=== PATIENT | male | born 1975 | race Caucasian/White ===

== ENCOUNTER 2024-12-13 20:37 | Emergency (ER) | payer MEDICAID, SELFPAY ==
--- NOTE | 2024-12-13 20:40 | ED.RECABL ---
HPI - Recheck/Abnormal Lab/Rx General Chief Complaint: Recheck/Abnormal Lab/Rx Stated Complaint: increased K level sent by Dr. Valenzuela Seen by Provider: 12/14/24 01:18 Source: patient Mode of arrival: ambulatory Limitations: no limitations History of Present Illness ED Provider: Dr. Samara Oconnor HPI narrative: Patient comes to the emergency room stating that he had a phone call from his primary care physician to let him know that his potassium is elevated at 6.1. They asked him to come to the emergency room to get evaluated. Patient is asymptomatic. Related Data Allergies Allergy/AdvReac Type Severity Reaction Status Date / Time No Known Allergies Allergy Verified 12/13/24 20:45 Review of Systems Review of Systems: Constitutional : No Weight loss, No Fever, No Chills, No Night Sweats, No Fatigue, No Malaise ENT/Mouth : No Hearing loss, No Ear Pain, No Nasal Congestion, No Sinus Pain, No Hoarseness, No sore throat, No Rhinorrhea, No Swallowing Difficulty Eyes: No Eye Pain, No Swelling, No Redness, No Foreign Body, No Discharge, No Vision Changes Cardiovascular : No Chest Pain, No SOB, No Dyspnea on Exertion, No Orthopnea, No Edema, No Palpitations Respiratory : No Cough, No Sputum, No Wheezing, No Smoke Exposure, No Dyspnea Gastrointestinal : No Nausea, No Vomiting, No Diarrhea, No Constipation, No abdominal Pain, No Hematochezia, No Melena Genitourinary : no irregular bleeding, No Dysuria, No Urinary Frequency, No Hematuria, No Urinary Incontinence, No Urgency, No Flank Pain, No Urinary Flow Changes, No Hesitancy Musculoskeletal : No joint pain, No Myalgias, No Joint Swelling Skin : No Skin Lesions, No rash Neuro : No Weakness, No Numbness, No Paresthesias, No Loss of Consciousness, No Dizziness, No Headache Psych : No Anxiety/Panic, No Depression, No SI/HI/AH/VH, No Social Issues, Heme/Lymph: No Bruising, No Bleeding,No Lymphadenopathy Endocrine : No Polyuria, No Polydipsia, No Temperature Intolerance PMFSH Social History Social History Do you have a plan to hurt others: No Plan Physical Exam Vital Signs: Vital Signs: Last Vital Signs Temp 98.2 F 12/14/24 00:42 Pulse 92 12/14/24 00:42 Resp 18 12/14/24 00:42 BP 110/69 12/14/24 00:42 Pulse Ox 97 12/14/24 00:42 O2 Del Method Room Air 12/14/24 00:42 BMI result Body Mass Index 23.8 Const: Other: Appearance: Alert. Oriented X3. No acute distress. Eyes: Pupils equal, round and reactive to light. ENT: Pharynx normal. Neck: Normal inspection. Neck supple. No lymph nodes noted. No crepitus CVS: Normal heart rate and rhythm. Pulses normal. Normal S1 and S2 Respiratory: No respiratory distress. Breath sounds normal. No Wheezing. No rales Abdomen: Soft and nontender. No rigidity. No distention. Skin: Skin warm and dry. Normal skin color. Normal skin turgor. Extremities: No lower extremity edema. No Lacerations. No Rash Neuro: Oriented X 3. No motor deficit. No sensory deficit. Moving all extremities. No slurred speech. CN 2 through 12 grossly intact Psych: calm, cooperative, normal affect Course Course Course Narrative: This is an RME performed by Haven Carnes CNP: Additional HPI, ROS, PE not included below will be deferred to primary provider. Patient is a 49-year-old male who presents emergency department for evaluation, received a call from his doctor's office that his potassium level was critical at 6.1, lab was drawn yesterday. Plan: Serum labs, ECG Medical Decision Making Medical Decision Making [facility] Narrative: My interpretation of labs: Patient's potassium is 4.5 without any intervention. My interpretation of EKG: Normal sinus rhythm, heart rate 10, occasional PVCs, no ST segment depression or elevation, no T-wave inversion, QTC 424 I discussed with the patient that sometimes with the tourniquet is too tight and blood is drawn, it can not give a falls elevated potassium. No further intervention needed. Lab Data 12/13/24 20:58 12/13/24 20:58 Labs: Lab Results 12/13/24 Range/Units 20:58 WBC 8.6 (4.8-10.8) X10*3/uL RBC 3.97 L (4.60-5.80) X10*6/uL Hgb 12.4 L (14.0-18.0) g/dl Hct 36.2 L (42.0-52.0) % MCV 91.2 (80.0-98.0) fL MCH 31.2 (27.0-33.0) pg MCHC 34.3 (31.0-36.0) g/dl RDW 11.7 (11.0-16.0) % Plt Count 258 (160-400) X10*3/uL MPV 10.1 (9.4-12.4) fL Immature Gran % (Auto) 0.2 (0.0-0.4) % Neut % (Auto) 61.2 (45-73) % Lymph % (Auto) 28.4 (20-40) % [place] % (Auto) 7.8 (2-11) % Eos % (Auto) 1.7 (0-4) % Baso % (Auto) 0.7 (0-2) % Lymph # (Auto) 2.4 (1.2-4.9) X10*3/uL [place] # (Auto) 0.7 (0.1-1.2) X10*3/uL Eos # (Auto) 0.2 (0.0-0.4) X10*3/uL Baso # (Auto) 0.1 (0.0-0.2) X10*3/uL Abs Immat Gran (auto) 0.02 (0.00-0.03) X10*3/uL Absolute Neuts (auto) 5.2 (2.0-8.3) x10*3/uL Absolute Nucleated RBC 0.000 (0.0-0.012) X10*3/uL Nucleated RBC % (auto) 0.0 (0.0-0.2) /100WBC Sodium 137 (135-145) mmol/L Potassium 4.5 (3.3-5.1) mmol/L Chloride 106 (96-108) mmol/L Carbon Dioxide 22 (22-29) mmol/L Anion Gap 14 (12-20) BUN 38 H (9-16) mg/dL Creatinine 1.05 (0.5-1.4) mg/dL Estim Creat Clear Calc 83.2 Estimated GFR > 60 Random Glucose 138 H (60-115) mg/dL Calcium 8.8 (8.4-10.2) mg/dL Magnesium 2.3 (1.6-2.6) mg/dL Total Bilirubin 0.2 (0.0-1.0) mg/dL AST 18 (5-37) U/L ALT 19 (0-40) U/L Alkaline Phosphatase 74 (39-117) U/L Total Protein 6.4 L (6.5-8.0) g/dL Albumin 4.0 (3.5-5.0) g/dL Discharge Plan Discharge Clinical Impression: Normal exam Patient Disposition: Home, Self-Care Instructions: Normal Exam (ED) Additional Instructions: Please follow-up with your primary care physician tomorrow. If you have any worsening or new symptoms, please return to the emergency room or call 911
[2024-12-13 20:42] VITALS: BP 109/78; PULSE 112; RESP 18; TEMP 36.9; O2SAT 99; BMI 23.8
--- NOTE | 2024-12-13 20:45 | ECG_ITS ---
Test Reason : HYPERKALEMIA Blood Pressure : */* mmHG Vent. Rate : 110 BPM Atrial Rate : 110 BPM P-R Int : 126 ms QRS Dur : 88 ms QT Int : 314 ms P-R-T Axes : 77 83 58 degrees QTcB Int : 424 ms Sinus tachycardia with occasional Premature ventricular complexes Otherwise normal ECG No previous ECGs available Referred By: Lorraine Carnes Electronically Signed By: Rom Catherine
[2024-12-13 21:04] LABS: MANUAL DIFF FLAG NO
[2024-12-13 21:19] LABS: Alanine Aminotransferase 19 U/L (0-40); Alkaline Phosphatase 74 U/L (39-117); Anion Gap 14 (12-20); Aspartate Amino Transferase 18 U/L (5-37); Bilirubin Total 0.2 mg/dL (0.0-1.0); Blood Urea Nitrogen 38 mg/dL (9-16); Calcium 8.8 mg/dL (8.4-10.2); Carbon Dioxide 22 mmol/L (22-29); Chloride 106 mmol/L (96-108); Creatinine Clr Calc Pharmacy 83.2; Estimated Glomerular Filt Rate > 60; Glucose Random 138 mg/dL (60-115); Magnesium 2.3 mg/dL (1.6-2.6); Potassium 4.5 mmol/L (3.3-5.1); Sodium 137 mmol/L (135-145); Total Protein 6.4 g/dL (6.5-8.0)
[2024-12-13 21:30] LABS: Basophils Absolute Auto 0.1 X10*3/uL (0.0-0.2); Basophils Percent Auto 0.7 % (0-2); Eosinophils Absolute Auto 0.2 X10*3/uL (0.0-0.4); Eosinophils Percent Auto 1.7 % (0-4); Hematocrit 36.2 % (42.0-52.0); Hemoglobin 12.4 g/dl (14.0-18.0); Imm Gran Abs Auto 0.02 X10*3/uL (0.00-0.03); Imm Gran Pct Auto 0.2 % (0.0-0.4); Lymphocytes Absolute Auto 2.4 X10*3/uL (1.2-4.9); Lymphocytes Percent Auto 28.4 % (20-40); Mean Corpuscular HGB Conc 34.3 g/dl (31.0-36.0); Mean Corpuscular Hemoglobin 31.2 pg (27.0-33.0); Mean Corpuscular Volume 91.2 fL (80.0-98.0); Mean Platelet Volume 10.1 fL (9.4-12.4); Monocytes Absolute Auto 0.7 X10*3/uL (0.1-1.2); Monocytes Percent Auto 7.8 % (2-11); Neutrophils Absolute Auto 5.2 x10*3/uL (2.0-8.3); Neutrophils Percent Auto 61.2 % (45-73); Platelet Count 258 X10*3/uL (160-400); Red Blood Count 3.97 X10*6/uL (4.60-5.80); Red Cell Distribution Width 11.7 % (11.0-16.0); White Blood Count 8.6 X10*3/uL (4.8-10.8)
[2024-12-14 00:42] VITALS: BP 110/69; PULSE 92; RESP 18; TEMP 36.8; O2SAT 97
[2024-12-14 01:38] VITALS: BP 110/69; PULSE 92; RESP 18; TEMP 36.8; O2SAT 97
== END 2024-12-14 01:38 | disposition home or self-care (01) ==
LOC: HO.ED 12-14 01:39
PROVIDERS: Nurse Practitioner Family; Emergency Provider Emergency Medicine
DX: Z03.89 Encounter for observation for other suspected diseases and conditions ruled out (principal)
CPT/HCPCS: 36415; 80053; 83735; 85025; 93005; 99283

== ENCOUNTER → 2024-12-13 20:45 | Outpatient (BNV) | payer MEDICAID, SELFPAY | PROVIDERS: Emergency Provider Emergency Medicine; Visit Provider Internal Medicine Cardiovascular Disease | DX: I49.3 Ventricular premature depolarization (principal); R00.0 Tachycardia, unspecified | CPT/HCPCS: 93010 ==

== ENCOUNTER 2025-01-10 16:56 | Emergency (ER) | payer MEDICAID, SELFPAY ==
[2025-01-10 16:58] VITALS: BP 137/92; PULSE 110; RESP 20; TEMP 37.2; O2SAT 97; BMI 27.1
--- NOTE | 2025-01-10 17:05 | ED_ITS ---
HPI - Extremity Problem General Chief complaint: Extremity Injury, Upper Stated complaint: right arm pain Time Seen by Provider: 01/10/25 18:43 Source: patient and old records reviewed Mode of arrival: ambulatory Limitations: no limitations History of Present Illness ED Provider: NAV HPI Narrative: 49 yo male with PMH of HTN, mood disorder not on blood thinners who is managed at [facility] for cervical issues and neck pain he has stenosis he states from C3- C5. He notes his R arm is very painful near the bicep. No numbness, weakness, no trauma. He takes tylenol and no relief. He notes he has to have surgery but is not scheduled yet. He notes he cannot tolerate the pain. He wants to talk to his spine provider next week about the plan moving forward. No fevers, no rash. MD Complaint: extremity pain Onset (ago): day(s) (few) Pain Consistency: intermittent Location: right Quality: aching Radiation: none Relieving factors: rest Exacerbating factors: range of motion Associated symptoms: denies other symptoms Context: other Related Data Previous Rx's ?Medication ?Instructions ?Recorded morphine 15 mg immediate release 15 mg PO Q6H PRN pain #10 tabs 01/10/25 tablet prednisone 20 mg tablet 40 mg (2 x 20 mg) PO DAILY 5 days 01/10/25 #10 tabs Allergies Allergy/AdvReac Type Severity Reaction Status Date / Time No Known Allergies Allergy Verified 01/10/25 17:02 Review of Systems Review of Systems: Constitutional : No Fever, No Chills ENT/Mouth : No Ear Pain, No Hoarseness, No sore throat Eyes: No Eye Pain, No Swelling, No Redness, No Foreign Body Cardiovascular : No Chest Pain, No SOB Respiratory : No Cough, No Dyspnea Gastrointestinal : No Nausea, No Vomiting, No Diarrhea, No abdominal Pain Genitourinary : No Dysuria, No Hematuria Musculoskeletal : positive joint pain, No Myalgias, No Joint Swelling, pos arm pain Skin : No Skin lacerations, No rash Neuro : No Weakness, No Numbness, No Loss of Consciousness, No Dizziness, No Headache All other systems reviewed and are negative [facility] Past Medical History Attestation statement: The following information was validated with the patient. Medical History HTN (hypertension) Mood disorder Social History Social History (Updated 01/10/25 @ 19:08 by Ana Maria Burgess DO) Patient Tobacco Use Status: Never used Tobacco Advance Directives: No Advance Directives Information Provided: No Do you have a plan to hurt others: No Plan Physical Exam Vital Signs: Vital Signs: Last Vital Signs Temp 98.6 F 01/10/25 19:35 Pulse 91 01/10/25 19:35 Resp 18 01/10/25 19:35 BP 131/86 01/10/25 19:35 Pulse Ox 98 01/10/25 19:35 O2 Del Method Room Air 01/10/25 19:35 BMI result Body Mass Index 27.1 Appearance: Alert. Oriented X3. No acute distress. Eyes: Pupils equal, round and reactive to light. ENT: Pharynx normal. Neck: Normal inspection. ttp CVS: Normal heart rate and rhythm. Pulses normal. Respiratory: No respiratory distress. Breath sounds normal. Abdomen: Soft and nontender. Skin: Skin warm and dry. Normal skin color. Normal skin turgor. Extremities: No lower extremity edema. No calf ttp Neuro: Oriented X 3. No motor deficit. No sensory deficit. CN2-12 intact Course Course Course Narrative: RME; 49-year-old male presents to ED for neck pain radiating down right bicep. Patient had MRI yesterday which shows cervical spinal stenosis of the cervical spine and lumbar spine. Patient denies any neuro deficits. Patient has complete range of motion of all extremities. Patient requesting pain medication. Patient to be evaluated main ED for pain med controlled. Medications Administered Discontinued Medications Generic Name Dose Route Start Last Admin Trade Name Freq PRN Reason Stop Dose Admin Morphine Sulfate 15 mg 01/10/25 18:55 01/10/25 19:09 Morphine Sulfate Immed Release 15 Mg Tablet PO 01/10/25 18:56 15 mg ONCE ONE Administration Medical Decision Making Medical Decision Making MDM Narrative: 49 yo male with PMH of HTN, mood disorder not on blood thinners here with c/o R sided neck pain that he has had MRI of neck showing stenosis at C3-C5, he is NV intact at this time and his strength 5/5 and SILT intact, will start on steroids and PO pain control. Differential Diagnosis Differential Diagnoses: The differential diagnosis associated with the presentation includes stenosis, arm pain, tendonitis Admission/Observation Consideration of admission/observation: Escalation of care including admission/observation considered stable for outpatient pain control Prescription Management I considered prescription management with: Pain Medication Discharge Plan Discharge Clinical Impression: Cervical radiculopathy Patient Disposition: Home, Self-Care Instructions: Cervical Radiculopathy (ED) Additional Instructions: return for any worsening symptoms pain, numbness, weakness or any other concerns such as new incontinence please follow up with your providers Prescriptions: New morphine 15 mg tablet 15 mg PO Q6H PRN (Reason: pain) Qty: 10 0RF Rx Instructions: partial fill okay; Partial Fill upon patient request. prednisone 20 mg tablet 40 mg PO DAILY 5 Days Qty: 10 0RF Interventions: ED Discharge Assessment Last Done: 01/10/25 19:35 Discharge Date/Time: 01/10/25 19:37 Print Language: Romansh
[2025-01-10] MEDS: Morphine Sulfate Immed Release 15 MG TABLET PO (19:09)
[2025-01-10 19:35] VITALS: BP 131/86; PULSE 91; RESP 18; TEMP 37; O2SAT 98
== END 2025-01-10 19:37 | disposition home or self-care (01) ==
PROVIDERS: Emergency Provider Emergency Medicine; PCP Internal Medicine
DX: M54.12 Radiculopathy, cervical region (principal); M54.2 Cervicalgia; I10 Essential (primary) hypertension; F39 Unspecified mood [affective] disorder
CPT/HCPCS: 99283